=== PATIENT | male | born 1960 | race Caucasian/White ===

== ENCOUNTER → 2023-09-09 06:28 | Day surgery (SDC) | payer BC, SELFPAY | LOC: GI 06:28 | PROVIDERS: ATTENDING PHYSICIAN Internal Medicine | DX: R63.4 Abnormal weight loss (principal); K52.9 Noninfective gastroenteritis and colitis, unspecified; K57.30 Diverticulosis of large intestine without perforation or abscess without bleeding; K64.8 Other hemorrhoids; R11.2 Nausea with vomiting, unspecified; K44.9 Diaphragmatic hernia without obstruction or gangrene; K21.00 Gastro-esophageal reflux disease with esophagitis, without bleeding; R76.8 Other specified abnormal immunological findings in serum; K29.50 Unspecified chronic gastritis without bleeding | CPT/HCPCS: 45380; 43239; 88305; 88342 ==

== ENCOUNTER → 2024-12-07 16:03 | Outpatient (REF) | payer OTHER, SELFPAY ==
[2024-12-07 16:48] LABS: % Basophils 0.4 % (0-2); % Eosinophils 2.7 % (0-6); % Immature Granulocytes 0.4 % (0-0.5); % Lymphocytes 18.3 % (20.5-51.1); % Monocytes 6.9 % (1.7-9.3); % Neutrophils 71.3 % (42.2-75.2); Absolute Basophils 0.1 10^3/uL (0-0.2); Absolute Eosinophils 0.3 10^3/uL (0-0.7); Absolute Immature Granulocytes 0.1 10^3/uL (0-0.05); Absolute Lymphocytes 2.1 10^3/uL (1.2-3.4); Absolute Monocytes 0.8 10^3/uL (0.1-0.6); Absolute Neutrophils 8.1 10^3/uL (1.4-6.5); Hematocrit 40.6 % (39.0-52.0); Hemoglobin 13.8 g/dL (13.0-18.0); Mean Corpuscular Hgb 31.6 pg (27.0-31.0); Mean Corpuscular Volume 92.9 fL (80.0-94.0); Mean Platelet Volume 8.7 fL (7.4-10.4); Nucleated Red Blood Cells % 0 % (-); Platelet Count 372 10^3/uL (130-400); Red Blood Cell Count 4.37 10^6/uL (4.70-6.10); Red Cell Dist. Width 11.9 % (11.5-14.5); White Blood Cell Count 11.4 10^3/uL (4.8-10.8)
[2024-12-07 16:57] LABS: Erythrocyte Sed Rate 35 mm/hour (0-20)
[2024-12-07 17:06] LABS: ALT (SGPT) 22 U/L (0-50); AST (SGOT) 29 U/L (17-59); Alkaline Phosphatase 106 U/L (38-126); Blood Urea Nitrogen 22 mg/dl (9-20); Calcium 10.1 mg/dl (8.4-10.2); Carbon Dioxide 25 mmol/L (22-30); Chloride 105 mmol/L (98-107); Glucose 117 mg/dl (70-99); Potassium 4.9 mmol/L (3.5-5.1); Sodium 141 mmol/L (135-145); Total Bilirubin 0.5 mg/dl (0.2-1.3); eGFR > 60.00
[2024-12-07 17:14] LABS: Albumin 4.4 g/dl (3.5-5.0)
[2024-12-08 08:46] LABS: Glycohemoglobin (HgbA1c) 5.6 % (4.0-5.6)
== END ==
LOC: CLINIC 16:03
PROVIDERS: ATTENDING PHYSICIAN Internal Medicine; FAMILY PHYSICIAN Family Medicine
DX: R73.01 Impaired fasting glucose (principal); M25.562 Pain in left knee
CPT/HCPCS: 36415; 80053; 83036; 85025; 85652; 86618

== ENCOUNTER → 2024-12-08 16:43 | Outpatient (REF) | payer OTHER, SELFPAY | LOC: RAD 16:43 | PROVIDERS: ATTENDING PHYSICIAN Internal Medicine; FAMILY PHYSICIAN Family Medicine | DX: R73.01 Impaired fasting glucose (principal) | CPT/HCPCS: 74177; Q9967 ==

== ENCOUNTER 2025-01-04 12:30 | Inpatient (IN) | payer SELFPAY ==
[2025-01-02] VITALS (34 sets, daily range): BP systolic 96–150; BP diastolic 56–92; BMI 20.1
[2025-01-02 00:47] LABS: Hematocrit 47.2 % (39.0-52.0); Hemoglobin 16.5 g/dL (13.0-18.0); Mean Corp Hgb Conc. 35.0 g/dL (33.0-37.0); Mean Corpuscular Volume 90.2 fL (80.0-94.0); Nucleated Red Blood Cells % 0 % (-); Platelet Count 253 10^3/uL (130-400); Red Cell Dist. Width 12.2 % (11.5-14.5)
[2025-01-02 02:20] LABS: ALT (SGPT) 29 U/L (0-50); AST (SGOT) 29 U/L (17-59); Albumin 5.0 g/dl (3.5-5.0); Alkaline Phosphatase 121 U/L (38-126); Blood Urea Nitrogen 22 mg/dl (9-20); Calcium 10.5 mg/dl (8.4-10.2); Carbon Dioxide 22 mmol/L (22-30); Chloride 103 mmol/L (98-107); Estimated Creatinine Clearance 88 ml/min; Glucose 164 mg/dl (70-99); Potassium 4.1 mmol/L (3.5-5.1); Sodium 139 mmol/L (135-145); Total Protein 8.8 g/dl (6.3-8.2); eGFR > 60.00
--- NOTE | 2025-01-02 02:31 | DOWNTIME ---
There was a [employer] Downtime on 01/02/2025 from 0100 to 01/02/2025 at 0220. Downtime documentation of patient's care, including medication administrations, has been reconciled in the electronic record per guidelines. Refer to the
patient's paper chart under the miscellaneous tab to see printed paper medication records and downtime forms.
[2025-01-02] MEDS: OMNIPAQUE 50 ML PO (02:42)
--- NOTE | 2025-01-02 02:57 | ED.GENMED ---
History of Present Illness
<Sofi Kearns MD, Resident - Last Filed: 01/03/25 20:11>
General
Chief Complaint: Abdominal Pain
Source: patient
Exam Limitations: none
Time Seen by Provider: 01/02/25 02:32
Nursing documentation reviewed up to this point in time: agreed with
History of Present Illness
History of Present Illness:
Mr. Yadi Menon is a 64-year-old male with a PMH notable for right inguinal hernia (scheduled surgery on 01/10/2025), celiac disease, and recent Lyme disease (finished 4-week course of doxycycline recently), who is presenting with right groin pain
and vomiting x 2 since this afternoon.
He has felt dull right groin pain for the last 12 weeks, which led to a diagnosis of inguinal hernia. Today, an hour after he ate a gluten-free pizza that he made, he started feeling increased groin pain. His last bowel movement was this afternoon.
He has had diarrhea for 2 weeks, which she attributes to doxycycline.
<Anjum Chiu DO - Last Filed: 01/02/25 05:59>
History of Present Illness
History of Present Illness:
Mr. Yadi Menon is a 64-year-old male with a PMH notable for right inguinal hernia (scheduled surgery on 01/10/2025), celiac disease, and recent Lyme disease (finished 4-week course of doxycycline recently), who is presenting with right groin pain
and vomiting x 2 since this afternoon.
He has felt dull right groin pain for the last 12 weeks, which led to a diagnosis of inguinal hernia. Today, an hour after he ate a gluten-free pizza that he made, he started feeling increased groin pain. His last bowel movement was this afternoon.
He has had diarrhea for 2 weeks, which he attributes to doxycycline.
Review of Systems
<Sofi Kearns MD, Resident - Last Filed: 01/03/25 20:11>
Review of Systems
All Other Systems: ROS reviewed and negative except as documented in HPI and ROS
Phy Exam
<Sofi Kearns MD, Resident - Last Filed: 01/03/25 20:11>
Physical Exam
Physical Exam:
General:
Uncomfortable
Cold, covered in layers of blankets
Groin:
Right groin with firm, unreducible, 2 cm hernia
Abdomen:
Diffuse pain to light palpation
Hypoactive bowel sounds
Cardiovascular:
Regular rate and rhythm
No pedal edema
Radial pulses 2+ bilaterally
Lungs:
Clear to oscillation bilaterally
Skin:
Erythema at the anterior neck, axilla, and right inner forearm
Course
<Sofi Kearns MD, Resident - Last Filed: 01/03/25 20:11>
Orders/Labs/Results
Orders:
Orders
01/02/25
Electrocardiogram (*1) Stat
Reason for Study: Chest Pain
Comment: DONE
DIETARY IP CONSULT Routine
Reason for Consult: weight loss secondary to gluten free
01/02/25 00:41
Complete Blood Count/With Diff Urgent
Comprehensive Metabolic Panel Urgent
Lactate Level [Lactic Acid] Urgent
01/02/25 01:22
Morphine Sulfate 4 mg .ROUTE .STK-MED ONE
Ondansetron Injectable [Zofran] 4 mg .ROUTE .STK-MED ONE
01/02/25 01:58
Iohexol [Omnipaque] 50 ml .ROUTE .STK-MED ONE
01/02/25 02:38
CT Abd/pel W Iv And Oral Contr Urgent
Comment:
Reason For Exam: r inguinal pain
Iohexol [Omnipaque] See Protocol PO NOW STA
01/02/25 03:27
Electrocardiogram (*1) Urgent
Reason for Study: PreOp
01/02/25 03:28
EKG- Treatment ONCE
0.9% Sodium Chloride 1000 ml [Nss] 1,000 ml IV BOLUS
01/02/25 04:13
ABO2 Urgent
[employer] Wristband Number:
Associate notified that ABO2 has been ordered: [id number]
Date: 01/02/25
Time: 04:50
Optical Engineering Technician ID: [id number]
01/02/25 04:26
Prothrombin Time Urgent
01/02/25 04:41
Type+Screen Urgent
[employer] Wrist[employer] Number:
01/02/25 07:09
Piperacillin/Tazo 3.375 Gram [Zosyn] 3.375 gram in 50 ml IV NOW
01/02/25 08:01
Dexamethasone Sod Phosphate [Decadron] 20 mg .ROUTE .STK-MED ONE
Lidocaine HCl/Pf [Xylocaine-Mpf 1% Vial] 50 mg .ROUTE .STK-MED ONE
Ondansetron Injectable [Zofran] 4 mg .ROUTE .STK-MED ONE
Propofol [Diprivan] 20 ml .ROUTE .STK-MED
Rocuronium [place]on [Rocuronium] 50 mg .ROUTE .STK-MED ONE
01/02/25 08:02
Fentanyl Citrate/Pf [Sublimaze] 100 mcg .ROUTE .STK-MED ONE
Midazolam HCl [Versed] 2 mg .ROUTE .STK-MED ONE
01/02/25 09:04
Fentanyl Citrate/Pf [Sublimaze] 25 mcg IV [id number] PRN
HYDROmorphone [Dilaudid] 0.25 mg IV PACU-Q5MPRN PRN
HYDROmorphone [Dilaudid] 0.5 mg IV PACU-Q5MPRN PRN
Ondansetron Injectable [Zofran] 4 mg IV PACU-ONCEPRN PRN
Prochlorperazine [Compazine] 5 mg IV PACU-ONCEPRN PRN
Notify MD As Directed
Notify physician if: for SDS patients with known or suspected sleep obstructive sleep apnea, monitor in the
PACU.
Notify MD for any apneic/desaturation episodes
O2 Therapy [RESP] Urgent
Titrate/Wean O2 to maintain O2 sat greater than (%): 92
Special Instructions: -Provide supplemental oxygen to achieve O2 sat of 92% or greater.
-After 15 min, may wean O2 and discontinue if patient is able to maintain O2 sat of 92%
or greater during recovery period.
If patient is a discharge home, without oxygen therapy, notify anestheiologist if
unable to maintain O2 SAT of 92% or greater on room air for MD clearance.
01/02/25 09:08
Bupivacaine 0.25%Pf/Epinephrin [Sensorcaine-Epi 0.25%-0.0005] 30 ml .ROUTE .STK-MED ONE
01/02/25 09:15
Normosol (Mult Electrolytes) [Normosol-R/Plasmalyte-A] 1,000 ml IV PER PROTOCOL
01/02/25 Lunch
NPO
Allow oral meds: Yes
Allow clear liquids: Sips of Clears
01/02/25 10:10
HYDROmorphone [Dilaudid] 1 mg .ROUTE .STK-MED ONE
01/02/25 10:48
Ketorolac [Toradol] 30 mg .ROUTE .STK-MED ONE
Sugammadex Sodium [Bridion] 200 mg .ROUTE .STK-MED ONE
01/02/25 10:49
Acetaminophen 1000MG/100Ml [Ofirmev] 1,000 mg in 100 ml .ROUTE .STK-MED
01/02/25 10:59
Admit Patient As Directed
Co-Sign Provider:
Level of Care: Post Proc/Surg Recovery
Assign to:: Medical/Surgical
Physician / Group: Dulce Maria / CAMILA
Diagnosis: RIGHT femoral hernia
Reason for Overnight Stay: Standard of Care
Code Status As Directed
Resuscitation Status: Full Code
HYDROmorphone [Dilaudid] 0.5 mg IV Q2HPRN PRN
Ondansetron Injectable [Zofran] 4 mg IV Q6HPRN PRN
Oxycodone [Roxicodone] 5 mg PO Q4HPRN PRN
Activity As Directed
Activity Level: Ambulate
Intake/ Output As Directed
Frequency: Per unit guidelines
Vital Signs As Directed
Frequency: Per unit guidelines
01/02/25 11:00
Normosol (Mult Electrolytes) [Normosol-R/Plasmalyte-A] 1,000 ml IV 100 mls/hr
Pneumatic Compression Sleeves As Directed
Type: Knee high
PRN Pain Medication Management As Directed
May give lesser potent ordered pain med per pt: Yes
preference::
Protocol:: Medication orders for pain may be administered in a
manner that supports deferring to patient preference
when the pt is:
- Requesting an ordered lesser potent pain medication.
Least to most potent pain medications are defined
as: acetaminophen < NSAID < tramadol < opioids
(morphine, oxycodone, hydromorphone).
- Requesting a lesser dose of the same medication IF
ORDERED.
- Requesting a less intrusive route of administration
if both routes are prescribed by the provider (PO <
IV).
O2 Therapy [RESP] Routine
Titrate/Wean O2 to maintain O2 sat greater than (%): 90
DX Deep Vein Thrombosis Video Routine
01/02/25 11:01
Rx Incentive Spirometry [RESP] Routine
Frequency: q1h while awake
# of times per hour: 10
01/02/25 13:32
Ondansetron Injectable [Zofran] 4 mg .ROUTE .STK-MED ONE
01/02/25 14:00
Piperacillin/Tazo 3.375 Gram [Zosyn] 3.375 gram in 50 ml IV Q6H
01/02/25 Dinner
Clear Liquid
At Your Request: Full Participation
Does patient need a safe tray?: No
01/02/25 15:47
Prochlorperazine [Compazine] 10 mg .ROUTE .STK-MED ONE
01/02/25 16:00
Acetaminophen [Tylenol] 650 mg PO Q4HWA
Ketorolac [Toradol] 10 mg IV Q6HPRN PRN
01/02/25 17:10
Case Management Consult ONCE
Case Management Consult: Advanced Directive
01/02/25 18:00
Enoxaparin Sodium [Lovenox] 40 mg SC QPM
01/03/25 Breakfast
Low Residue
At Your Request: Full Participation
01/03/25 07:11
BMP [Basic Metabolic Panel] Routine
CBC/No Diff [Complete Blood Count/No Diff] Routine
Lactate Level [Lactic Acid] Routine
01/03/25 Dinner
NPO
Reason for opting out of [employer] Supervisor order writing: Provider Decision
Allow oral meds: Yes
Allow clear liquids: Sips of Clears
Abnormal Lab Results
01/02/25 01/03/25
00:41 07:11
WBC 12.0 H 10^3/uL
(4.8-10.8)
RBC 4.20 L 10^6/uL
(4.70-6.10)
Hct 38.3 L %
(39.0-52.0)
MCH 31.5 H pg 31.2 H pg
(27.0-31.0) (27.0-31.0)
Absolute Neuts (auto) 9.8 H 10^3/uL
(1.4-6.5)
Neutrophils % 81.7 H %
(42.2-75.2)
Lymphocytes % 13.4 L %
(20.5-51.1)
BUN 22 H mg/dl
(9-20)
Glucose 164 H mg/dl 106 H mg/dl
(70-99) (70-99)
Lactic Acid 3.6 H mmol/L
(0.7-2.0)
Calcium 10.5 H mg/dl
(8.4-10.2)
Total Protein 8.8 H g/dl
(6.3-8.2)
01/03/25 07:11
01/03/25 07:11
Vital Signs
Initial and Last Documented VS:
Initial Vital Signs
Temp Pulse Resp BP Pulse Ox
98.2 F 52 26 146/92 100
01/02/25 00:25 01/02/25 00:25 01/02/25 00:25 01/02/25 00:25 01/02/25 00:25
Last Documented Vital Signs
Temp Pulse Resp BP Pulse Ox
99.4 F 41 16 133/75 98
01/03/25 15:35 01/03/25 15:35 01/03/25 15:35 01/03/25 15:35 01/03/25 15:35
<Anjum Chiu, DO - Last Filed: 01/02/25 05:59>
Orders/Labs/Results
Orders:
Orders
01/02/25
Electrocardiogram (*1) Stat
Reason for Study: Chest Pain
Comment: DONE
DIETARY IP CONSULT Routine
Reason for Consult: weight loss secondary to gluten free
01/02/25 00:41
Complete Blood Count/With Diff Urgent
Comprehensive Metabolic Panel Urgent
Lactate Level [Lactic Acid] Urgent
01/02/25 01:22
Morphine Sulfate 4 mg .ROUTE .STK-MED ONE
Ondansetron Injectable [Zofran] 4 mg .ROUTE .STK-MED ONE
01/02/25 01:58
Iohexol [Omnipaque] 50 ml .ROUTE .STK-MED ONE
01/02/25 02:38
CT Abd/pel W Iv And Oral Contr Urgent
Comment:
Reason For Exam: r inguinal pain
Iohexol [Omnipaque] See Protocol PO NOW STA
01/02/25 03:27
Electrocardiogram (*1) Urgent
Reason for Study: PreOp
01/02/25 03:28
EKG- Treatment ONCE
0.9% Sodium Chloride 1000 ml [Nss] 1,000 ml IV BOLUS
01/02/25 04:13
ABO2 Urgent
[employer] Number:
Associate notified that ABO2 has been ordered: [id number]
Date: 01/02/25
Time: 04:50
Optical Engineering Technician ID: [id number]
01/02/25 04:26
Prothrombin Time Urgent
01/02/25 04:41
Type+Screen Urgent
[employer] [facility] Number:
01/02/25 07:09
Piperacillin/Tazo 3.375 Gram [Zosyn] 3.375 gram in 50 ml IV NOW
01/02/25 08:01
Dexamethasone Sod Phosphate [Decadron] 20 mg .ROUTE .STK-MED ONE
Lidocaine HCl/Pf [Xylocaine-Mpf 1% Vial] 50 mg .ROUTE .STK-MED ONE
Ondansetron Injectable [Zofran] 4 mg .ROUTE .STK-MED ONE
Propofol [Diprivan] 20 ml .ROUTE .STK-MED
Rocuronium [place] [Rocuronium] 50 mg .ROUTE .STK-MED ONE
01/02/25 08:02
Fentanyl Citrate/Pf [Sublimaze] 100 mcg .ROUTE .STK-MED ONE
Midazolam HCl [Versed] 2 mg .ROUTE .STK-MED ONE
01/02/25 09:04
Fentanyl Citrate/Pf [Sublimaze] 25 mcg IV [id number] PRN
HYDROmorphone [Dilaudid] 0.25 mg IV PACU-Q5MPRN PRN
HYDROmorphone [Dilaudid] 0.5 mg IV PACU-Q5MPRN PRN
Ondansetron Injectable [Zofran] 4 mg IV PACU-ONCEPRN PRN
Prochlorperazine [Compazine] 5 mg IV PACU-ONCEPRN PRN
Notify MD As Directed
Notify physician if: for SDS patients with known or suspected sleep obstructive sleep apnea, monitor in the
PACU.
Notify MD for any apneic/desaturation episodes
O2 Therapy [RESP] Urgent
Titrate/Wean O2 to maintain O2 sat greater than (%): 92
Special Instructions: -Provide supplemental oxygen to achieve O2 sat of 92% or greater.
-After 15 min, may wean O2 and discontinue if patient is able to maintain O2 sat of 92%
or greater during recovery period.
If patient is a discharge home, without oxygen therapy, notify anestheiologist if
unable to maintain O2 SAT of 92% or greater on room air for MD clearance.
01/02/25 09:08
Bupivacaine 0.25%Pf/Epinephrin [Sensorcaine-Epi 0.25%-0.0005] 30 ml .ROUTE .STK-MED ONE
01/02/25 09:15
Normosol (Mult Electrolytes) [Normosol-R/Plasmalyte-A] 1,000 ml IV PER PROTOCOL
01/02/25 Lunch
NPO
Allow oral meds: Yes
Allow clear liquids: Sips of Clears
01/02/25 10:10
HYDROmorphone [Dilaudid] 1 mg .ROUTE .STK-MED ONE
01/02/25 10:48
Ketorolac [Toradol] 30 mg .ROUTE .STK-MED ONE
Sugammadex Sodium [Bridion] 200 mg .ROUTE .STK-MED ONE
01/02/25 10:49
Acetaminophen 1000MG/100Ml [Ofirmev] 1,000 mg in 100 ml .ROUTE .STK-MED
01/02/25 10:59
Admit Patient As Directed
Co-Sign Provider:
Level of Care: Post Proc/Surg Recovery
Assign to:: Medical/Surgical
Physician / Group: Dulce Maria / CAMILA
Diagnosis: RIGHT femoral hernia
Reason for Overnight Stay: Standard of Care
Code Status As Directed
Resuscitation Status: Full Code
HYDROmorphone [Dilaudid] 0.5 mg IV Q2HPRN PRN
Ondansetron Injectable [Zofran] 4 mg IV Q6HPRN PRN
Oxycodone [Roxicodone] 5 mg PO Q4HPRN PRN
Activity As Directed
Activity Level: Ambulate
Intake/ Output As Directed
Frequency: Per unit guidelines
Vital Signs As Directed
Frequency: Per unit guidelines
01/02/25 11:00
Normosol (Mult Electrolytes) [Normosol-R/Plasmalyte-A] 1,000 ml IV 100 mls/hr
Pneumatic Compression Sleeves As Directed
Type: Knee high
PRN Pain Medication Management As Directed
May give lesser potent ordered pain med per pt: Yes
preference::
Protocol:: Medication orders for pain may be administered in a
manner that supports deferring to patient preference
when the pt is:
- Requesting an ordered lesser potent pain medication.
Least to most potent pain medications are defined
as: acetaminophen < NSAID < tramadol < opioids
(morphine, oxycodone, hydromorphone).
- Requesting a lesser dose of the same medication IF
ORDERED.
- Requesting a less intrusive route of administration
if both routes are prescribed by the provider (PO <
IV).
O2 Therapy [RESP] Routine
Titrate/Wean O2 to maintain O2 sat greater than (%): 90
DX Deep Vein Thrombosis Video Routine
01/02/25 11:01
Rx Incentive Spirometry [RESP] Routine
Frequency: q1h while awake
# of times per hour: 10
01/02/25 13:32
Ondansetron Injectable [Zofran] 4 mg .ROUTE .STK-MED ONE
01/02/25 14:00
Piperacillin/Tazo 3.375 Gram [Zosyn] 3.375 gram in 50 ml IV Q6H
01/02/25 Dinner
Clear Liquid
At Your Request: Full Participation
Does patient need a safe tray?: No
01/02/25 15:47
Prochlorperazine [Compazine] 10 mg .ROUTE .STK-MED ONE
01/02/25 16:00
Acetaminophen [Tylenol] 650 mg PO Q4HWA
Ketorolac [Toradol] 10 mg IV Q6HPRN PRN
01/02/25 17:10
Case Management Consult ONCE
Case Management Consult: Advanced Directive
01/02/25 18:00
Enoxaparin Sodium [Lovenox] 40 mg SC QPM
01/03/25 Breakfast
Low Residue
At Your Request: Full Participation
01/03/25 07:11
BMP [Basic Metabolic Panel] Routine
CBC/No Diff [Complete Blood Count/No Diff] Routine
Lactate Level [Lactic Acid] Routine
01/03/25 Dinner
NPO
Reason for opting out of [employer] Super[employer] order writing: Provider Decision
Allow oral meds: Yes
Allow clear liquids: Sips of Clears
Abnormal Lab Results
01/02/25 01/03/25
00:41 07:11
WBC 12.0 H 10^3/uL
(4.8-10.8)
RBC 4.20 L 10^6/uL
(4.70-6.10)
Hct 38.3 L %
(39.0-52.0)
MCH 31.5 H pg 31.2 H pg
(27.0-31.0) (27.0-31.0)
Absolute Neuts (auto) 9.8 H 10^3/uL
(1.4-6.5)
Neutrophils % 81.7 H %
(42.2-75.2)
Lymphocytes % 13.4 L %
(20.5-51.1)
BUN 22 H mg/dl
(9-20)
Glucose 164 H mg/dl 106 H mg/dl
(70-99) (70-99)
Lactic Acid 3.6 H mmol/L
(0.7-2.0)
Calcium 10.5 H mg/dl
(8.4-10.2)
Total Protein 8.8 H g/dl
(6.3-8.2)
01/03/25 07:11
01/03/25 07:11
Vital Signs
Initial and Last Documented VS:
Initial Vital Signs
Temp Pulse Resp BP Pulse Ox
98.2 F 52 26 146/92 100
01/02/25 00:25 01/02/25 00:25 01/02/25 00:25 01/02/25 00:25 01/02/25 00:25
Last Documented Vital Signs
Temp Pulse Resp BP Pulse Ox
99.4 F 41 16 133/75 98
01/03/25 15:35 01/03/25 15:35 01/03/25 15:35 01/03/25 15:35 01/03/25 15:35
<Sofi Kearns MD, Resident - Last Filed: 01/03/25 20:11>
MDM/Problems Addressed
Differential Diagnosis Includes:
Complicated inguinal hernia
Incarcerated hernia
Obstructed hernia
Strangulated hernia less likely given lack of constitutional symptoms of sepsis or shock
Also considering but less likely:
Lymphadenopathy
Follow-up
MDM/Problems Addressed:
Mr. Yadi Menon is a 64-year-old male with a PMH notable for inguinal hernia and celiac disease who presents with groin pain, vomiting, and an irreducible groin mass, that is during for an obstructed hernia. General surgery is consulted
CT abdomen pelvis with IV and p.o. contrast
CBC: WBC elevated at 12
CMP: Calcium elevated at 10.5, creatinine 0.8, BUN elevated at 22
Lactic acid: Elevated at 3.6
Preop labs: Type and screen, coags, EKG
Prior CT abdomen pelvis on 12/08/2024: Mild right inguinal canal fluid. This can be seen with a small incarcerated/strangulated fat containing hernia.
Chronic conditions affecting care: Other (Celiac disease)
<Sofi Kearns MD, Resident - Last Filed: 01/03/25 20:11>
*Pulse Oximetry
SaO2: 98
Oxygen Mode of Delivery: Room air
Patient hypoxic: no
*Critical Care Note
Total Time (30-74mins, 75-104mins- exclusive of procedures): Not Applicable
Data Reviewed
Review of Other/Old Records Reveals: Radiology Studies (Abdomen pelvis CT November 2024)
Source: records
<Anjum Chiu DO - Last Filed: 01/02/25 05:59>
Update Note
Update Note:
NAME: YADI MENON
DATE OF EXAM: 01/02/2025
Patient No: [id number]
Physician: PRESLEY^CONRADO
Date of : 1960
Past Medical History (entered by Technologist):
Reason For Exam (entered by Technologist): recent hernia, scheduled for surgery 01/10, new onset acute pain
Other Notes (entered by Technologist): priors
Additional Information (per [facility] Radiologist):
CT ABDOMEN PELVIS WITH CONTRAST
COMPARISON: 12/08/2024
IMPRESSION:
There is a small bowel obstruction with a transition point related to a right groin hernia with a configuration suggesting inguinal but possibly femoral hernia. There is a mildly dilated loop of small bowel within the hernial sac with 2 transition
points raising suspicion for closed loop obstruction
No evidence of diverticulitis or colitis. Normal appendix.
No free air.
No obstructive uropathy.
No concerning bone finding.
Case discussed with Dr Chiu at 0520 EST. If there are any questions please feel free to contact me directly at [phone], ext [phone]. If you cannot reach me at this number, do not leave a voicemail. Please call [phone] ext [phone] and ask for
the next available radiologist.
Ambrose Shelton M.D.
This report has been electronically signed and verified by the Radiologist whose name is printed above.
ED Attending Note
<Sofi Kearns MD, Resident - Last Filed: 01/03/25 20:11>
-
Portions of this chart may have been created with voice recognition software.� Occasional wrong word or��sound alike� substitutions may have occurred due to the inherent limitations of voice recognition software.
<Anjum Chiu, - Last Filed: 01/02/25 05:59>
ED Attending Note
Patient seen and examined by attending physician: Yes
I performed a history and physical exam of patient and discussed management with resident, I reviewed resident's note and agree with documented findings and plan of care.: Yes
ED Attending Note:
Note:
CHIEF COMPLAINT(S)
Right inguinal hernia
HISTORY OF PRESENT ILLNESS
The patient is a 64-year-old male who presents with right-sided inguinal hernia that has been present since the second to third week of September. The patient reports that the hernia is occasionally reducible with physical manipulation but experiences
progressive pain characterized by sharp episodes. The patient is scheduled for surgical intervention on the third of the upcoming month with Dr. Ambrose.
EXTERNAL RECORDS REVIEWED
The patient mentioned having computed tomography (CT) scan results that may reference the location of the pain, though details were not specified in the conversation.
PHYSICAL EXAM
General: Alert, no acute distress.
Skin: Warm, dry.
Head: Normocephalic, atraumatic.
Neck: Supple, trachea midline.
Eye Ears, nose, mouth and throat: Oral mucosa moist.
Cardiovascular: Normal peripheral perfusion, No edema.
Respiratory: Respirations are non-labored.
Gastrointestinal: Abdomen nondistended
Back: Normal range of motion, Normal alignment.
Musculoskeletal: Normal ROM, normal strength.
Neurological: Alert and oriented to person, place, time, and situation, No focal neurological deficit observed.
Psychiatric: Cooperative, appropriate mood & affect.
PLAN
The patient is scheduled for surgical intervention for the inguinal hernia with Dr. Ambrose on the third of the upcoming month.
DIFFERENTIAL DIAGNOSIS
The Differential Diagnosis includes, in no particular order and is not limited to:
1. Inguinal hernia
2. Incarcerated hernia
3. Strangulated hernia
4. Groin strain
5. Appendicitis
6. Kidney stones
7. Testicular torsion
8. Femoral hernia
9. Hip joint disorder
10. Colonic diverticulitis
Disposition:
SUMMARY OF ENCOUNTER
A 64-year-old male presented to the emergency department with increased right inguinal pain, which he attributed to his hernia making his bowel herniated. The pain became intolerable, leading to his arrival in the emergency department. Upon
examination, an attempt was made to reduce the hernia, but it was unsuccessful. Dr. Butts was consulted, and a CT scan with IV and oral contrast was recommended and performed. The imaging results revealed a small bowel obstruction related to a
right groin hernia, with configuration suggesting an inguinal or possibly femoral hernia. There was evidence of a mildly dilated loop of small bowel and two transition points, raising suspicion for closed loop obstruction.
DISPOSITION
Admit to the general surgery service.
ASSESSMENT
The patient is experiencing a small bowel obstruction with a transition point related to a right groin hernia, which might be an inguinal or femoral hernia. The possibility of a closed loop obstruction is a major concern.
MANAGEMENT OF THE PATIENTS CARE WAS DISCUSSED WITH
Dr. العراقي was consulted, and he advised keeping the patient NPO and mentioned he would visit the patient.
INDEPENDENT REVIEW OF LABS AND INTERPRETATION OF TESTS
My independent interpretation of the CT scan with IV and oral contrast indicates a small bowel obstruction with transition points related to a right groin hernia, potentially an inguinal or femoral hernia, with concern for closed loop obstruction.
MEDICAL DECISION MAKING
-Complexity of Data Reviewed: Chronic conditions affecting care. Differential Diagnosis: Inguinal hernia, incarcerated hernia, strangulated hernia, groin strain, appendicitis, kidney stones, testicular torsion, femoral hernia, hip joint disorder,
colonic diverticulitis.
-Data:
Category 1: I reviewed the patients external records including a CT scan with IV and oral contrast results indicating a small bowel obstruction with a transition point related to a right groin hernia.
Category 3: Discussion of management with Dr. Butts, a surgeon, regarding the imaging findings and patient care plan.
DIAGNOSIS
- Small bowel obstruction [ICD-10: K56.60]
- Right inguinal hernia [ICD-10: K40.90]
- Suspected closed loop obstruction [ICD-10: K56.60]
A 64-year-old male presented to the emergency department with increased right inguinal pain, which he attributed to his hernia making his bowel herniated. The pain became intolerable, leading to his arrival in the emergency department. Upon
examination, an attempt was made to reduce the hernia, but it was unsuccessful. Dr. العراقي was consulted, and a CT scan with IV and oral contrast was recommended and performed. The imaging results revealed a small bowel obstruction related to a
right groin hernia, with configuration suggesting an inguinal or possibly femoral hernia. There was evidence of a mildly dilated loop of small bowel and two transition points, raising suspicion for closed loop obstruction.
Discharge Plan
Departure
Patient Disposition: Admit
Date of Disposition: 01/02/25
Time of Disposition: 05:32
Admit to: OR
Presentation/result/management discussed w/ accepting MD/DO: Dulce Maria
Condition: Good
Discharge Problem:
SBO (small bowel obstruction), Inguinal hernia, Closed loop obstruction of intestine, Femoral hernia of right side
Interventions
Interventions:
*Risk Screen - Suicide Last Done: 01/02/25 00:25
*General Assessment Last Done: 01/02/25 00:49
*Neglect/Abuse Screening Last Done: 01/02/25 08:44
*ED- Fall Risk Assessment Last Done: 01/02/25 00:49
*ED COVID-19 Vaccine History Last Done: 01/02/25 00:49
*Nursing Disposition Last Done: 01/02/25 08:44
LL-Taunpf-Vfzlpgctav Assessment Last Done: 01/02/25 07:30
Discharge Date and Time
Discharge Date/Time: 01/02/25 09:28
[2025-01-02] MEDS: NSS 1000 IV (04:15)
[2025-01-02 05:05] LABS: INR 1.03; PT 13.8 Sec (11.4-14.6)
--- NOTE | 2025-01-02 07:01 | HPS.HSE ---
Family Physician
-
Family Physician: Martin Wright,
Chief Complaint
-
RIGHT groin pain
History of Present Illness
Patient is a 64 yo M with a PMH notable for GERD and a known RIGHT femoral hernia who presents to the ED with worsening swelling and pain of his right groin region. He has had a known RIGHT groin hernia for several months now dating back to September.
He was previously seen by myself back in October and recommended for a CT scan and robotic RIGHT inguinal/femoral hernia repair with mesh. He was scheduled for repair on 01/10/2025. Unfortunately, over the past 12 to 24 hours he has developed worsening
pain with associated nausea and vomiting. His symptoms began yesterday afternoon after having a large gluten-free pizza. Last bowel movement and flatus was yesterday afternoon. Several episodes of nausea and vomiting. No fevers or chills. He
notes increased swelling and discomfort in his RIGHT groin region. No overlying skin changes. Urinating without any issues.
Medical History
Past Medical History
Past Medical History: Reports GERD and Other (RIGHT femoral hernia, celiac)
Past Surgical History: Reports None
Social History
Tobacco: Former Smoker
Alcohol: None
Drug: None
Personal: Partner
Family History
Family History: Not pertinent
Allergies / Home Medications
Allergies reflects when Allergies were last updated in [email or web address].
Home Medications with original date entered in [email or web address]
Allergy/Medication List:
Gluten
Review of Systems
-
A 12 point ROS was completed and negative except as noted: Yes
Physical Exam
Vital Signs
Vital Signs
Temp Pulse Resp BP Pulse Ox
98.2 F 54 17 147/73 96
01/02/25 00:25 01/02/25 06:45 01/02/25 06:45 01/02/25 06:00 01/02/25 06:30
Physical Exam
General: Well Developed, Well Nourished and No Apparent Distress
HEENT: NormoCephalic and Anicteric
Respiratory: Non Labored Respirations
Cardiac: Regular Rhythm
GI: Soft, Non Tender, Non Distended and Other (RIGHT groin hernia, firm, unable to reduce, no skin changes, tender with exam)
Musculoskeletal: No Edema
Skin: Warm and Dry
Laboratory Results
-
01/02/25 00:41
01/02/25 00:41
Laboratory Results
PT 13.8 Sec (11.4-14.6) 01/02/25 04:26
INR 1.03 01/02/25 04:26
Lactic Acid 3.6 mmol/L (0.7-2.0) H 01/02/25 00:41
Total Bilirubin 1.1 mg/dl (0.2-1.3) 01/02/25 00:41
AST 29 U/L (17-59) 01/02/25 00:41
ALT 29 U/L (0-50) 01/02/25 00:41
Alkaline Phosphatase 121 U/L (38-126) 01/02/25 00:41
Data Reviewed
-
CT Scan: Image Personally Visualized and interpreted and Report Reviewed by me
Lab Data: Labs Reviewed by me
Impression/Plan
-
IMPRESSION:
Patient is a 64 yo M p/w incarcerated RIGHT femoral hernia containing loop of small bowel
Previous discussion regarding the natural history and pathophysiology of inguinal and femoral hernias. Updated CT scan and current situation was reviewed with the patient. Given the presence of bowel recommend a more urgent operative repair.
Plan for a laparoscopic possible open RIGHT femoral hernia repair with possible mesh, possible bowel resection. The procedure itself, as well as the risks, benefits, and alternatives was discussed. Specifically, we discussed the risks of bleeding,
infection, injury to surrounding structures (bowel, nerves, blood supply to the testicle, and vas deferens), chronic groin discomfort, and recurrence. We discussed that his postoperative course is largely to be determined based on the need for a
bowel resection. He will need to be admitted postoperatively to monitor for dietary tolerance. Otherwise no heavy lifting or strenuous activities for 4 weeks postoperatively. All questions answered. Consent signed.
PLAN:
-- Laparoscopic possible open RIGHT femoral hernia repair with possible mesh, possible bowel resection
-- NPO, IVF
-- Abx: Zosyn
-- Admit post-op
--- NOTE | 2025-01-02 07:09 | W.SUR.PREOP ---
Pre-Operative Surgical Note
-
I have examined this patient prior to the performance of the scheduled procedure.
The patient's condition is unchanged from the time of the current History and
Physical and the patient is able to undergo the scheduled procedure.
[2025-01-02] MEDS: ZOSYN 50 IV ×3 (07:29→20:35)
--- NOTE | 2025-01-02 08:44 | EDRN ---
Report given to SELLING MANAGER.
--- NOTE | 2025-01-02 10:52 | W.IMMPOSTOP ---
Surgical Immed Post Op Note
-
Primary Surgeon: Dulce Maria
Assisting Surgeon: FREDERIC Covington
Pre-op Diagnosis: Incarcerated RIGHT femoral hernia
Post-op Diagnosis: Incarcerated RIGHT femoral hernia
Procedure Performed: Diagnostic laparoscopy, robotic RIGHT femoral hernia repari with mesh
Anesthesia Type: General
Specimen / Cultures: None
Estimated Blood Loss: 3 cc
Complications: None
Operative Findings:
1. Knuckle of small bowel within femoral hernia, reduced laparoscopically, viable, no resection
2. Small indirect
3. RAMIRO repair with Bard 3D Max large mid weight mesh
[2025-01-02] MEDS: ZOFRAN 4 MG IV (13:33)
[2025-01-02] MEDS: COMPAZINE 5 MG IV (15:47)
--- NOTE | 2025-01-02 16:48 | PTCARENOTE ---
Patient admitted from [facility] post diagnostic laparotomy and repair of right hernia with mesh.The patient came in to the emergency room from home with abdominal pain.All incisions are open to air without drainage.Vital signs are stable.The patient
reports his pain at a 2-3 out of 10.The patient did vomit just as he got to the room.Compazine was given in the [facility] right before he came to the floor.The patient is in his bed with the call diaz in reach.
[2025-01-02] MEDS: TYLENOL PO (17:21)
[2025-01-02] MEDS: NORMOSOL-R/PLASMALYTE-A 1000 IV (17:21)
[2025-01-02] MEDS: LOVENOX 40 MG SC (17:24)
[2025-01-02] MEDS: TYLENOL 650 MG PO ×2 (20:35→23:45)
[2025-01-03] MEDS: ZOSYN 50 IV ×4 (02:00→21:00)
[2025-01-03] MEDS: TYLENOL 650 MG PO ×3 (04:30→21:01)
[2025-01-03] MEDS: NORMOSOL-R/PLASMALYTE-A 1000 IV (04:30)
[2025-01-03] MEDS: NORMOSOL-R/PLASMALYTE-A IV (07:00)
--- NOTE | 2025-01-03 07:02 | W.PN.GS2 ---
Today's Communication / Plan
-
-- LRD
-- HLIV
-- Dispo pending
Assessment / Plan
-
Patient is a 64 yo M POD#1 s/p diagnostic laparoscopy, reduction of incarcerated femoral hernia containing small bowel, and robotic RIGHT femoral hernia repair with mesh
AVSS
Labs pending
Recovering well. Some signs of return of bowel function with passage of flatus, no clinical signs of ileus or obstruction. Plan for dietary advancement. Dispo today versus tomorrow pending pain control and dietary tolerance.
-- LRD
-- HLIV
-- Pain control: Tylenol, Toradol, Oxycodone
-- Abx: Zosyn for translocation coverage while in hospital
-- DVT: Lovenox
Subjective Data
-
Date of Service: January 03, 2025
Soreness in RIGHT groin. No nausea or vomiting. No increased bloating. Ports passing flatus, no BM. Voiding. Ambulating.
Objective Data
-
Intake and Output
01/02/25 01/03/25 01/04/25
06:59 06:59 06:59
Intake Total 2140 / 2140
Output Total 1450 / 1450
Balance 690 / 690
Intake:
Oral fluids 240 / 240
IV fluids (Total) 1800 / 1800
Normosol 600 / 600
IV piggybacks 100 / 100
Output:
Urine, Voided 1450 / 1450
Vital Signs
Temp Pulse Resp BP Pulse Ox
98.9 F 63 14 127/83 97
01/02/25 23:25 01/02/25 23:25 01/02/25 23:25 01/02/25 23:25 01/02/25 23:25
Calcium 10.5 mg/dl (8.4-10.2) H 01/02/25 00:41
Total Bilirubin 1.1 mg/dl (0.2-1.3) 01/02/25 00:
AST 29 U/L (17-59) 01/02/25:
ALT 29 U/L (0-50) 01/02/25 00:41
Alkaline Phosphatase 121 U/L (38-126) 01/02/25 00:
Total Protein 8.8 g/dl (6.3-8.2) H 01/02/25 00:
Albumin 5.0 g/dl (3.5-5.0) 01/02/25 00:
Physical Exam
-
Gen: NAD
Abd: soft, NT/ND, non-peritoneal, incisions c/d/i - no erythema, ecchymosis or drainage, slight soreness in RIGHT groin, no palpable mass or bulge, no bruising palpable hernia
Patient has a pope catheter: No
Patient has a central line: No
[2025-01-03 07:35] VITALS: BP 126/63
[2025-01-03 07:41] LABS: Hematocrit 38.3 % (39.0-52.0); Hemoglobin 13.1 g/dL (13.0-18.0); Mean Corp Hgb Conc. 34.2 g/dL (33.0-37.0); Mean Corpuscular Volume 91.2 fL (80.0-94.0); Platelet Count 186 10^3/uL (130-400); Red Cell Dist. Width 12.4 % (11.5-14.5)
[2025-01-03 07:52] LABS: Blood Urea Nitrogen 20 mg/dl (9-20); Calcium 9.2 mg/dl (8.4-10.2); Carbon Dioxide 29 mmol/L (22-30); Chloride 104 mmol/L (98-107); Estimated Creatinine Clearance 78 ml/min; Glucose 106 mg/dl (70-99); Potassium 4.0 mmol/L (3.5-5.1); Sodium 136 mmol/L (135-145); eGFR > 60.00
--- NOTE | 2025-01-03 11:16 | CM ---
Cm reviewed medical records. Patient lives independently alone. Patient does not have a history of VN or SNF. Patient denied DME. Patient is active with her PCP. Patient plans to use [facility] for medication services.
PLAN: home no needs.
[2025-01-03] MEDS: ZOFRAN 4 MG IV ×2 (11:32→21:03)
[2025-01-03] MEDS: TORADOL 10 MG IV (11:38)
[2025-01-03 13:05] VITALS: BMI 20.1
[2025-01-03] MEDS: TYLENOL PO ×2 (13:05→18:14)
[2025-01-03 15:35] VITALS: BP 133/75
[2025-01-03] MEDS: LOVENOX 40 MG SC (18:12)
[2025-01-03 23:16] VITALS: BP 137/72
[2025-01-03] MEDS: MELATONIN 5 MG PO (23:21)
[2025-01-04] MEDS: TYLENOL 650 MG PO ×5 (01:42→16:21)
[2025-01-04] MEDS: ZOSYN 50 IV ×4 (01:45→20:44)
[2025-01-04 07:40] VITALS: BP 129/66
--- NOTE | 2025-01-04 07:42 | W.PN.GS2 ---
Today's Communication / Plan
-
-- Clears ADAT to fulls with sup shakes
-- Dispo pending
Assessment / Plan
-
Patient is a 64 yo M POD#2 s/p diagnostic laparoscopy, reduction of incarcerated femoral hernia containing small bowel, and robotic RIGHT femoral hernia repair with mesh
AVSS
No new labs
Issues with ileus either medication related or more likely related to slow transit to the area of his incarcerated small bowel. Expect that this will improve with time. Currently symptoms have resolved. Plan for retrial of dietary advancement to
clears and then fulls. Discussed options of monitoring in the hospital setting for an additional 24 hours with potential advancement to solid foods versus discharge on fulls with outpatient advancement pending symptoms. Will reassess later this
afternoon.
-- Clears ADAT to fulls with sup shakes
-- HLIV
-- Pain control: Tylenol, Toradol, Oxycodone
-- Abx: Zosyn for translocation coverage while in hospital
-- DVT: Lovenox
-- Dispo pending
Subjective Data
-
Date of Service: January 04, 2025
Issues with nausea and vomiting x 2, back down to sips, symptoms resolved yesterday evening into this morning. Passing large amounts of flatus and 2 nonbloody BMs. No dizziness or lightheadedness. Reports soreness in his groin but pain overall
well-controlled. No bleeding. Voiding.
Objective Data
-
Intake and Output
01/03/25 01/04/25 01/05/25
06:59 06:59 06:59
Intake Total 2140 / 2140 820 / 820
Output Total 1450 / 1450 800 / 800
Balance 690 / 690 20 / 20
Intake:
Oral fluids 240 / 240 720 / 720
IV fluids (Total) 1800 / 1800
Normosol 600 / 600
IV piggybacks 100 / 100 100 / 100
Output:
Urine, Voided 1450 / 1450 800 / 800
Vital Signs
Temp Pulse Resp BP Pulse Ox
99.8 F 50 17 137/72 97
01/03/25 23:16 01/03/25 23:16 01/03/25 23:16 01/03/25 23:16 01/03/25 23:16
Lab Results
01/03/25 07:11
01/03/25 07:11
Calcium 9.2 mg/dl (8.4-10.2) 01/03/25 07:11
Total Bilirubin 1.1 mg/dl (0.2-1.3) 01/02/25 00:41
AST 29 U/L (17-59) 01/02/25 00:41
ALT 29 U/L (0-50) 01/02/25 00:41
Alkaline Phosphatase 121 U/L (38-126) 01/02/25 00:41
Total Protein 8.8 g/dl (6.3-8.2) H 01/02/25 00:41
Albumin 5.0 g/dl (3.5-5.0) 01/02/25 00:41
Physical Exam
-
Gen: NAD
Abd: soft, mild tenderness overlying groin, ND, non-peritoneal, incisions c/d/i - no erythema, ecchymosis or drainage
Patient has a pope catheter: No
Patient has a central line: No
--- NOTE | 2025-01-04 10:29 | CM ---
Reviewed the chart notes and spoke with the patient at the beside. CM continues to be available to patient/family and is monitoring medical plan for needs at discharge.
Plan: Discharge to home when medically stable. No needs anticipated at this time.
[2025-01-04 15:20] VITALS: BP 139/74
[2025-01-04] MEDS: ROXICODONE 5 MG PO (16:21)
[2025-01-04] MEDS: LOVENOX 40 MG SC (17:29)
[2025-01-04] MEDS: ZOFRAN 4 MG IV (17:46)
[2025-01-04] MEDS: TYLENOL PO (20:50)
[2025-01-04 23:08] VITALS: BP 135/72
[2025-01-05] MEDS: TYLENOL PO ×3 (02:12→12:11)
[2025-01-05] MEDS: ZOSYN 50 IV ×2 (02:12→08:32)
[2025-01-05 07:40] VITALS: BP 122/65
[2025-01-05] MEDS: TYLENOL 650 MG PO (08:32)
--- NOTE | 2025-01-05 08:56 | W.PN.GS2 ---
Today's Communication / Plan
-
-- DC today
Assessment / Plan
-
Patient is a 64 yo M POD#3 s/p diagnostic laparoscopy, reduction of incarcerated femoral hernia containing small bowel, and robotic RIGHT femoral hernia repair with mesh
AVSS
No new labs
Issues with ileus either medication related or more likely related to slow transit to the area of his incarcerated small bowel. Clinically improved over the past 12 hours. Plan to discharge on full liquid diet with patient advancing to low residue
diet if continues to do well.
-- Fulls with sup shakes
-- HLIV
-- Pain control: Tylenol, Toradol, Tramadol
-- Abx: none further needed
-- DVT: Lovenox
-- DC today
Subjective Data
-
Date of Service: January 05, 2025
Tolerated full liquids for dinner and breakfast this a.m. Push things a little with his volume of intake. No recurrent or worsening symptoms. No nausea or vomiting. Continues to pass flatus and loose bowel movements. No fevers or chills. Groin
soreness improving. No recurrent bulge.
Objective Data
-
Intake and Output
01/04/25 01/05/25 01/06/25
06:59 06:59 06:59
Intake Total 820 / 820 1531 / 1531
Output Total 800 / 800 200 / 200 300 / 300
Balance 20 / 20 1331 / 1331 -300 / -300
Intake:
Oral fluids 720 / 720 1431 / 1431
IV piggybacks 100 / 100 100 / 100
Output:
Urine, Voided 800 / 800 200 / 200 300 / 300
Other:
Number of approximated MODERATE 1
amounts of urine
Vital Signs
Temp Pulse Resp BP Pulse Ox
99.5 F 65 16 122/65 95
01/05/25 07:40 01/05/25 07:40 01/05/25 07:40 01/05/25 07:40 01/05/25 07:40
Lab Results
01/03/25 07:11
01/03/25 07:11
Calcium 9.2 mg/dl (8.4-10.2) 01/03/25 07:11
Total Bilirubin 1.1 mg/dl (0.2-1.3) 01/02/25 00:41
AST 29 U/L (17-59) 01/02/25 00:41
ALT 29 U/L (0-50) 01/02/25 00:41
Alkaline Phosphatase 121 U/L (38-126) 01/02/25 00:41
Total Protein 8.8 g/dl (6.3-8.2) H 01/02/25 00:41
Albumin 5.0 g/dl (3.5-5.0) 01/02/25 00:41
Physical Exam
-
Gen: NAD
Abd: soft, NT/ND, non-peritoneal, slight RIGHT groin soreness, no palpable hernia, incisions c/d/i - no erythema, ecchymosis or drainage
Patient has a pope catheter: No
Patient has a central line: No
--- NOTE | 2025-01-05 08:59 | W.DS.TRANS ---
Addendum entered and electronically signed by JUANITA Granados 01/05/25 12:51:
dictated #[id number]
Original Note:
DC Summary - Fundraising Assistant
-
Discharge Instructions:
Discharge Diagnosis/Procedures Incarcerated femoral hernia repair status post
robotic repair with mesh
Diet As tolerated
Additional Diets Full liquids for until next week, eat small
meals at first as bloating may occur, call the
office for advancement as an outpatient
Activity No strenuous activity
Additional Activity Do not lift over 20lbs for the next 4 weeks
Driving Restrictions No driving if too sore or taking narcotics
Bathing Restrictions OK to Shower
Wound Care Allow the glue to flake off your wounds on its
own over the next 2-3 weeks. Avoid picking or
scrubbing off. Do not soak in tubs or pools
during this time. Use ice to reduce bruising and
swelling.
Instructions:
Stand-Alone Forms:
Changes to Home Medications: Yes
Discharge Medications:
DC Medications w/original date entered in [email or web address]
acetaminophen 325 mg tablet 650 mg (2 x 325 mg) PO Q4HPRN PRN mild pain #1 tab 01/05/25
ibuprofen 200 mg tablet 400 - 600 mg (2 - 3 x 200 mg) PO Q6HPRN PRN moderate pain #1 tab 01/05/25
tramadol 50 mg tablet 50 mg PO Q6HPRN PRN severe pain/breakthrough pain #7 tabs 01/05/25
Home Medication Changes
Pending Results: No
[2025-01-05 13:10] VITALS: BP 130/66
== END 2025-01-05 14:00 | disposition home or self-care (01) | DRG 352 ==
LOC: 2 SOUTH 12:30
PROVIDERS: ADMITTING PHYSICIAN Surgery; EMERGENCY PHYSICIAN Student in an Organized Health Care Education/Training Program; FAMILY PHYSICIAN Family Medicine
PROC: 8E0W4CZ Robotic Assisted Procedure of Trunk Region, Percutaneous Endoscopic Approach (ICD-10-PCS; 2025-01-02)
PROC: 0YU74JZ Supplement Right Femoral Region with Synthetic Substitute, Percutaneous Endoscopic Approach (ICD-10-PCS; 2025-01-02)
DX: K41.30 Unilateral femoral hernia, with obstruction, without gangrene, not specified as recurrent (principal); K40.90 Unilateral inguinal hernia, without obstruction or gangrene, not specified as recurrent; K21.9 Gastro-esophageal reflux disease without esophagitis; Z87.891 Personal history of nicotine dependence; K90.0 Celiac disease
CPT/HCPCS: 74177; 80048; 80053; 83605; 85025; 85027; 85610; 86850; 86900; 86901; 93005; 96365; 99285; C1781; Q9967

== ENCOUNTER → 2025-03-22 11:50 | Outpatient (REF) | payer OTHER, SELFPAY ==
[2025-03-22 12:46] VITALS: BP 107/90; BP_SYST 61
== END ==
LOC: RADI 11:50
PROVIDERS: ATTENDING PHYSICIAN Internal Medicine Infectious Disease; FAMILY PHYSICIAN Family Medicine
DX: A69.20 Lyme disease, unspecified (principal)
CPT/HCPCS: 36573; C1751

== ENCOUNTER 2025-03-22 13:46 | Outpatient (RCR) | payer OTHER, SELFPAY ==
[2025-03-22 13:50] VITALS: BP 135/73
[2025-03-22] MEDS: ROCEPHIN 70 MG IV (14:04)
== END 2025-03-23 09:10 | disposition home or self-care (01) ==
LOC: OID 13:46
PROVIDERS: ATTENDING PHYSICIAN Internal Medicine Infectious Disease; FAMILY PHYSICIAN Family Medicine
DX: A69.23 Arthritis due to Lyme disease (principal)
CPT/HCPCS: 36573; 96365; C1751